=== PATIENT | male | born 1945 | race Caucasian/White ===

== ENCOUNTER → 2016-12-07 | Day surgery (SDC) | payer MEDICARE ==
[~2016-12-07] VITALS: Ht 180.3 cm; Wt 62.4 kg
[~2016-12-07] MED LIST: ALBU8I INH; BACITRACIN TOP OINT 15 GM TUBE ONE; BUPIVACAINE/EPINEPHRINE 0.25% PF 30 ML VIAL ONE; CEFU1TAB43 PO; CHLORHEXIDINE GLUCONATE 2 % 1 PACK (2 CLOTHS) TOPICAL PRN; FAMOTIDINE 20 MG/2 ML VIAL ONE; HALO0.5T PO; HALO1 PO; INSULIN HUMAN REGULAR 1,000 UNITS/10 ML VIAL SQ PRN; LACTATED RINGER'S 1000 ML IV PRN; LIDOCAINE 1%/EPINEPHrine 1:100,000 SOLN 20 ML VIAL ONE; METOPROLOL TARTRATE 25 MG TAB PO PRN; MIDAZOLAM HCL 2 MG/2 ML VIAL ONE; NORC5TAB PO; ONDANSETRON HCL 4 MG/2 ML VIAL IV PUSH ONE; PHENYLEPH/NS 1000 MCG/10 ML SYR IV ONE; POVIDONE IODINE 5% (ANTISEPSIS KIT) 4 APPLICATIONS EACH NARE PRN; PROPOFOL 200 MG/20 ML AMP IV ONE; SODIUM CHLORID 0.9% 500 ML IV PRN; SODIUM CHLORIDE 0.9% FLUSH 10 ML FLUSH IV FLUSH PRN; TIOT18I INH; VANCOMYCIN HCL 1000 MG ON-CALL/NS 250 ML IV SCH; XANA2TAB2 PO; ceFAZolin 1,000 MG/NS 100 ML IV SCH; fentaNYL CITRATE 250 MCG/5 ML AMP ONE
[2016-12-07 09:06] VITALS: BP 111/86; PULSE 78; RESP 18; TEMP 97.7; O2SAT 98
[2016-12-07 09:24] LABS: AUTOMATED NEUTROPHIL # 3.9 TH/MM3 (1.8-7.7); BASOPHIL % 0.7 % (0.0-2.0); EOSINOPHIL # 0.2 TH/MM3 (0-0.4); EOSINOPHIL % 3.6 % (0.0-4.0); HEMATOCRIT 32.4 % (39.0-51.0); HEMO FLAGS DIFF FINAL; LYMPH % 15.3 % (9.0-44.0); LYMPHOCYTE # 0.8 TH/MM3 (1.0-4.8); MEAN CELL VOLUME 96.7 FL (80.0-100.0); MEAN CORPUSCULAR HEMOGLOBIN 32.5 PG (27.0-34.0); MEAN CORPUSCULAR HGB CONC 33.6 % (32.0-36.0); MONO % 8.8 % (0.0-8.0); NEUT % 71.6 % (16.0-70.0); PLATELET COUNT 115 TH/MM3 (150-450); RED BLOOD COUNT 3.35 MIL/MM3 (4.50-5.90); RED CELL DISTRIBUTION WIDTH 13.5 % (11.6-17.2); WHITE BLOOD COUNT 5.5 TH/MM3 (4.0-11.0)
[2016-12-07 09:39] LABS: BICARBONATE 21.9 MEQ/L (21.0-32.0); POTASSIUM 4.4 MEQ/L (3.5-5.1)
--- NOTE | 2016-12-07 12:29 | HHI.PR ---
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
[2016-12-07 13:30] VITALS: BP 132/73; PULSE 86; RESP 18; TEMP 97.6; O2SAT 96
--- NOTE | 2016-12-09 18:51 | MP ---
cc: EARL REHMAN M.D., [place] DATE OF SURGERY December 07, 2016 PROCEDURE Excision 4x4 cm squamous cell carcinoma left neck. PREOPERATIVE DIAGNOSIS Enlarging mass left posterior neck. POSTOPERATIVE DIAGNOSIS Enlarging mass left posterior neck. ANESTHESIA LMA. SURGEON Jin ESTIMATED BLOOD LOSS Less than 10 ml. FLUIDS 700 ml crystalloid. COMPLICATIONS None. DRAINS None. SPECIMEN Neck lesion to pathology. PROCEDURE IN DETAIL The patient was taken to the operating room, after marking the site and placed on the operating table in this in the supine position. After laryngeal mask anesthesia was achieved, the patient was placed right side down with the neck slightly extended so that the lesion was easily seen. The neck was sterilely prepped and draped. Time-out was taken confirming the correct patient, site and procedure to be performed. Skin and subcutaneous tissue was infiltrated with local anesthetic and an elliptical incision made around the lesion. This was completely excised down to the muscle. A small margin was then created around the lesion as this was simply a palliative procedure so that the patient did not have any further bleeding. When this was completed, the skin was undermined slightly and the wound was reapproximated with interrupted 2-0 Vicryl sutures. The skin was reinforced with 3-0 nylon interrupted simple sutures. The wound was dressed with antibiotic ointment and a 4x4 applied over this. The patient was extubated and taken back to the recovery room in stable condition. He tolerated the procedure well. MD BRYN Castro/KK /12:26 PM /6:43 PM
== END | disposition home or self-care (01) ==
LOC: HSDC 08:24
PROVIDERS: ATTEND Surgery Trauma Surgery
DX: C79.89 Secondary malignant neoplasm of other specified sites (principal); C78.00 Secondary malignant neoplasm of unspecified lung; C78.7 Secondary malignant neoplasm of liver and intrahepatic bile duct; C18.9 Malignant neoplasm of colon, unspecified; F17.210 Nicotine dependence, cigarettes, uncomplicated
CPT/HCPCS: 00300; 21557; 80048; 85025; 88305; J0690; J1642; J2250; J2370; J2405; J3010; J3370; J7050; J7120

== ENCOUNTER → 2017-04-24 | Day surgery (SDC) | payer MEDICARE ==
[~2017-04-24] MED LIST changes: -ALBU8I INH; -BACITRACIN TOP OINT 15 GM TUBE ONE; -BUPIVACAINE/EPINEPHRINE 0.25% PF 30 ML VIAL ONE; -CEFU1TAB43 PO; -CHLORHEXIDINE GLUCONATE 2 % 1 PACK (2 CLOTHS) TOPICAL PRN; -FAMOTIDINE 20 MG/2 ML VIAL ONE; -HALO0.5T PO; -HALO1 PO; -INSULIN HUMAN REGULAR 1,000 UNITS/10 ML VIAL SQ PRN; +LACTATED RINGER'S 1000 ML INJ 1,000 ML ONE; -LACTATED RINGER'S 1000 ML IV PRN; -LIDOCAINE 1%/EPINEPHrine 1:100,000 SOLN 20 ML VIAL ONE; +LIDOCAINE 1%/EPINEPHrine 1:200,000 PF SOLN 30 ML VIAL INFIL ONE; -METOPROLOL TARTRATE 25 MG TAB PO PRN; -MIDAZOLAM HCL 2 MG/2 ML VIAL ONE; -ONDANSETRON HCL 4 MG/2 ML VIAL IV PUSH ONE; -PHENYLEPH/NS 1000 MCG/10 ML SYR IV ONE; -POVIDONE IODINE 5% (ANTISEPSIS KIT) 4 APPLICATIONS EACH NARE PRN; -PROPOFOL 200 MG/20 ML AMP IV ONE; +PROPOFOL 500 MG/50 ML BTL IV ONE; +SODIUM CHLOR 0.9% 250 ML INJ 250 ML IV ONE; -SODIUM CHLORID 0.9% 500 ML IV PRN; -SODIUM CHLORIDE 0.9% FLUSH 10 ML FLUSH IV FLUSH PRN; -TIOT18I INH; -VANCOMYCIN HCL 1000 MG ON-CALL/NS 250 ML IV SCH; +VANCOMYCIN HCL 1000 MG VIAL ONE; -ceFAZolin 1,000 MG/NS 100 ML IV SCH; +ceFAZolin INJ 1,000 MG VIAL ONE; -fentaNYL CITRATE 250 MCG/5 ML AMP ONE
--- NOTE | 2017-04-25 10:53 | MP ---
cc: ОЛЕГ ABDI M.D., [place] DATE OF SURGERY 04/24/2017 PROCEDURE Re-excision recurrent squamous cell carcinoma left posterior neck. PREOPERATIVE DIAGNOSIS recurrent squamous cell carcinoma left posterior neck. POSTOPERATIVE DIAGNOSIS recurrent squamous cell carcinoma left posterior neck. ANESTHESIA TIVA SURGEON Олег Abdi ESTIMATED BLOOD LOSS 30 mL FLUIDS 450 mL crystalloid COMPLICATIONS None DRAINS None SPECIMEN A 2 x 5 cm lesion including skin, subcutaneous tissue, and muscle as well as fascia. PROCEDURE IN DETAIL The patient was seen in the holding area and the left neck marked by the undersigned and confirmed by the patient. He was taken to the operating room and placed on the operating table in the supine position. IV sedation was begun and the head turned to the right. The neck was prepped and draped in usual fashion. Time-out was taken confirming the correct patient, site, and procedure to be performed. The skin and subcutaneous tissue was infiltrated with local anesthetic and an elliptical incision was made to include the lesion. Dissection was carried around the lesion as much as possible and dissection was carried down into the anterior sternocleidomastoid. This was retracted laterally and further dissection was carried out down toward the angle of the jaw and a small amount of salivary tissue was removed as well. As much as possible, tumor was removed, although a small amount of macroscopic tumor was left behind. This was cauterized and when this was completed, the wound was closed in two layers with interrupted 2-0 Vicryl suture to bring the muscle bellies together, as well as 3-0 Vicryl suture and 5-0 PDS to close the skin. The wound was dressed with Steri-Strips. Sponge, needle and instrument counts were reported to be correct. The patient tolerated the procedure well. MD BRYN Castro/APOORVA /11:45 AM /10:41 AM LAILA
== END | disposition home or self-care (01) ==
LOC: ESDC 08:52
PROVIDERS: ATTEND Surgery Trauma Surgery
DX: C44.42 Squamous cell carcinoma of skin of scalp and neck (principal)
CPT/HCPCS: 00300; 21554; 88305; J0690; J3010; J3370; J7050; J7120